=== PATIENT | male | born 1950 ===

== ENCOUNTER 2019-07-26 16:30 | Inpatient (IN) | payer OTHER ==
[~2019-07-26] VITALS: Ht 177.8 cm; Wt 136.1 kg
[2019-07-27] MEDS ORDERED: ARICEPT10 MG PO (07:48)
[2019-07-27] MEDS ORDERED: LOSARTAN POTASS50 MG PO (07:49)
[2019-07-27] MEDS ORDERED: SSD25 GM (07:49)
[2019-07-27] MEDS ORDERED: MONTELUKAST SOD10 MG PO (07:49)
[2019-07-27] MEDS ORDERED: KEPPRA100 MG/1 M (07:49)
[2019-07-27] MEDS ORDERED: DICLOFENAC SODI50 MG (07:50)
[2019-07-27] MEDS ORDERED: ROSUVASTATIN CA10 MG PO (07:50)
[2019-07-27] MEDS ORDERED: TRULICITY1.5 MG/0.5 (07:50)
[2019-07-27] MEDS ORDERED: MEMANTINE HCL10 MG PO (07:51)
[2019-07-27] MEDS ORDERED: SERTRALINE HCL50 MG PO (07:51)
== END 2019-08-05 12:00 | disposition home or self-care (01) | DRG 100 ==
LOC: ER 16:30 → MEDI 21:06 → SEC-K 21:06 → MEDJ 21:06 → MEDI 22:01 → MEDJ 07-27 20:16
PROVIDERS: ADMIT Internal Medicine Cardiovascular Disease
PROC: 4A033R1 Measurement of Arterial Saturation, Peripheral, Percutaneous Approach (ICD-10-PCS; 2019-07-26)
PROC: BW28ZZZ Computerized Tomography (CT Scan) of Head (ICD-10-PCS; principal; 2019-07-27)
PROC: 3E0F7GC Introduction of Other Therapeutic Substance into Respiratory Tract, Via Natural or Artificial Opening (ICD-10-PCS; 2019-07-28)
PROC: BB24ZZZ Computerized Tomography (CT Scan) of Bilateral Lungs (ICD-10-PCS; 2019-07-29)
PROC: 02HV33Z Insertion of Infusion Device into Superior Vena Cava, Percutaneous Approach (ICD-10-PCS; 2019-07-30)
PROC: B54MZZZ Ultrasonography of Right Upper Extremity Veins (ICD-10-PCS; 2019-08-04)
DX: G40.109 Localization-related (focal) (partial) symptomatic epilepsy and epileptic syndromes with simple partial seizures, not intractable, without status epilepticus (principal); E11.00 Type 2 diabetes mellitus with hyperosmolarity without nonketotic hyperglycemic-hyperosmolar coma (NKHHC); G93.41 Metabolic encephalopathy; J69.0 Pneumonitis due to inhalation of food and vomit; J15.211 Pneumonia due to Methicillin susceptible Staphylococcus aureus; E87.0 Hyperosmolality and hypernatremia; T17.898A Other foreign object in other parts of respiratory tract causing other injury, initial encounter; E86.0 Dehydration; I80.8 Phlebitis and thrombophlebitis of other sites; G31.89 Other specified degenerative diseases of nervous system; G30.0 Alzheimer's disease with early onset; F02.80 Dementia in other diseases classified elsewhere, unspecified severity, without behavioral disturbance, psychotic disturbance, mood disturbance, and anxiety; Z79.4 Long term (current) use of insulin; Z74.01 Bed confinement status